=== PATIENT | male | born 1995 | race Caucasian/White ===

== ENCOUNTER 2022-06-26 19:33 | Emergency (ER) | payer SELFPAY ==
[~2022-06-26] VITALS: Ht 160 cm; Wt 65.8 kg
[2022-06-26 19:35] VITALS: BP 129/80
--- NOTE | 2022-06-26 19:42 | NUR ---
PT BROUGHT TO CHAIR C VIA [facility]
--- NOTE | 2022-06-26 20:16 | NUR ---
PT CLEARED FOR DISCHARGE BY DR. PARRISH. ALL D/C INSTRUCTIONS PROVIDED. PT RELEASED INTO CUSTODY OF SISTER. PT AMBULATED TO PERSONAL VEHICLE
== END 2022-06-26 20:16 | disposition home or self-care (01) ==
LOC: MED 19:33
DX: F12.929 Cannabis use, unspecified with intoxication, unspecified (principal); R44.1 Visual hallucinations; Z79.899 Other long term (current) drug therapy
CPT/HCPCS: 99283